=== PATIENT | male | born 1950 | race African-American/Black ===

== ENCOUNTER 2024-07-02 12:59 | Inpatient (IN) | payer MEDICARE ==
[2024-07-02 13:36] LABS: BASO % 0.4 % (0-2.0); EOS % 0.5 % (0-4.5); HEMATOCRIT 34.9 % (35.4-49); LYMPH % 10.2 % (8-40); MCH 24.9 pg (25.7-33.7); MCHC 31.4 g/dl (32.0-35.9); MEAN CELL VOLUME 79.4 fl (80-96); MEAN PLT VOLUME 7.4 fl (7.5-11.1); MONO % 4.6 % (3.8-10.2); NEUT % 84.3 % (42.8-82.8); PLATELET COUNT 332 10^3/uL (134-434); RDW 15.8 % (11.9-15.9); WHITE BLOOD COUNT 12.2 K/mm3 (4.0-10.0)
[2024-07-02 14:07] LABS: CHLORIDE 103 mmol/L (98-107); POTASSIUM 3.2 mmol/L (3.5-5.1); SODIUM 139 mmol/L (136-145)
[2024-07-02 14:09] LABS: ALBUMIN 2.2 g/dl (3.4-5.0); ANION GAP 10 mmol/L (4-13); BLOOD UREA NITROGEN 23.3 mg/dL (7-18); CALCIUM 8.4 mg/dL (8.5-10.1); CO2 26 mmol/L (21-32); GLUCOSE,RANDOM 131 mg/dL (74-106); MAGNESIUM 1.8 mg/dL (1.8-2.4)
[2024-07-02 14:12] LABS: SGOT/AST 11 U/L (15-37)
[2024-07-02 14:13] LABS: CREATININE 1.9 mg/dL (0.55-1.3)
[2024-07-02 14:14] LABS: ALK PHOS 97 U/L (45-117); BILIRUBIN,TOTAL 0.6 mg/dL (0.2-1)
[2024-07-02 14:22] LABS: SGPT/ALT < 6 U/L (13-61)
[2024-07-02] MEDS: LACTATED RINGERS SOLUTION 1000 ML INFUS.BAG IV ONE (14:54)
[2024-07-02 16:07] LABS: EPI CELLS >36 /uL (0-25.1); HYALINE CASTS 9 /uL (0-3.1); PH,URINE 5.5 (5.0-8.0); URINE APPEARANCE CLOUDY; URINE BACTERIA 14 /uL (0-1359); URINE BILIRUBIN 1+ (NEGATIVE); URINE COLOR DK YELLOW; URINE GLUCOSE (UA) NEGATIVE (NEGATIVE); URINE KETONE TRACE (NEGATIVE); URINE LEUK ESTERASE 1+ (NEGATIVE); URINE NITRITE NEGATIVE (NEGATIVE); URINE PROTEIN 1+ (NEGATIVE); URINE WBC 141 /uL (0-25.8)
[2024-07-02] MEDS: ACETAMINOPHEN 1000 MG/100 ML BAG IVPB ONE (16:11)
[2024-07-02] MEDS: SODIUM CHLORIDE 0.9% 1000 ML INFUS.BAG IV ONE ×2 (16:11→16:54)
[2024-07-02] MEDS: CEFTRIAXONE 1,000 MG in DEXTROSE 5%-WATER - 50 ML IVPB ONE (16:11)
[2024-07-02] MEDS ORDERED: ACETAMINOPHEN INJECTION 100 ML ONE (16:12)
[2024-07-02] MEDS ORDERED: CEFTRIAXONE 1 GM/50 ML BAG ONE (16:12)
[2024-07-02 16:24] LABS: URINE RBC 52.9 /uL (0-23.9)
[2024-07-02] MEDS ORDERED: POTASSIUM CHLORIDE ORAL LIQUID 20 MEQ/15 ML ONE (18:40)
[2024-07-02] MEDS: SODIUM CHLORIDE 0.45%/POT 20 MEQ/1,000 ML INFUS.BAG IV SCH (18:50)
[2024-07-02] MEDS: POTASSIUM CHLORIDE ORAL LIQUID 20 MEQ/15 ML PO ONE (18:50)
[2024-07-02] MEDS: HEPARIN NA (PORCINE) 5,000 UNITS/ML 1ML VIAL SQ SCH (21:20)
[2024-07-02] MEDS: ATORVASTATIN CA 40 MG TABLET (FP) PO SCH (21:21)
[2024-07-03] MEDS: LEVOTHYROXINE NA 25 MCG TABLET (FP) PO SCH (06:10)
[2024-07-03 06:55] LABS: BASO % 0.4 % (0-2.0); EOS % 2.2 % (0-4.5); HEMATOCRIT 34.4 % (35.4-49); HEMOGLOBIN 10.8 GM/dL (11.7-16.9); LYMPH % 21.6 % (8-40); MCH 25.1 pg (25.7-33.7); MCHC 31.5 g/dl (32.0-35.9); MEAN CELL VOLUME 79.8 fl (80-96); MEAN PLT VOLUME 7.8 fl (7.5-11.1); MONO % 8.1 % (3.8-10.2); NEUT % 67.7 % (42.8-82.8); PLATELET COUNT 341 10^3/uL (134-434); RBC 4.31 M/mm3 (4.00-5.60); RDW 15.4 % (11.9-15.9); WHITE BLOOD COUNT 10.8 K/mm3 (4.0-10.0)
[2024-07-03 07:22] LABS: POTASSIUM 3.4 mmol/L (3.5-5.1)
[2024-07-03 07:29] LABS: ALBUMIN 2.3 g/dl (3.4-5.0); BLOOD UREA NITROGEN 17.6 mg/dL (7-18); CALCIUM 8.4 mg/dL (8.5-10.1)
[2024-07-03 07:30] LABS: MAGNESIUM 1.7 mg/dL (1.8-2.4)
[2024-07-03 07:33] LABS: CREATININE 1.3 mg/dL (0.55-1.3); PHOSPHOROUS 2.4 mg/dL (2.5-4.9)
[2024-07-03 07:34] LABS: BILIRUBIN,TOTAL 0.6 mg/dL (0.2-1); TOT PROT 7.1 g/dl (6.4-8.2)
[2024-07-03] MEDS: CLOPIDOGREL BISULFATE 75 MG TABLET (FP) PO SCH (09:53)
[2024-07-03] MEDS: MAGNESIUM SULF 50% (8.12 MEQ/2 ML-1 GM VIAL) IVPB ONE (09:53)
[2024-07-03] MEDS: NAPH,MB-DB/K PH,MBDB POWDER PACKET PO ONE (09:53)
[2024-07-03] MEDS: ASPIRIN COATED 81 MG TABLET.EC PO SCH (09:53)
[2024-07-03] MEDS: MAGNESIUM OXIDE 400 MG TABLET (FP) PO ONE (13:58)
[2024-07-03] MEDS: POTASSIUM CHLORIDE ORAL LIQUID 20 MEQ/15 ML PO ONE (13:59)
[2024-07-04] MEDS: CEFTRIAXONE 1 GM in DEXTROSE 5%-WATER - 50 ML IVPB SCH (09:31)
[2024-07-04] MEDS: FLU VACCINE (FLULAVAL) PF 45 MCG/0.5 ML SYRINGE 2024-2025 IM ONE (11:36)
[2024-07-04] MEDS: POTASSIUM CHLORIDE ORAL LIQUID 20 MEQ/15 ML PO ONE (11:41)
[2024-07-04] MEDS: NAPH,MB-DB/K PH,MBDB POWDER PACKET PO SCH (11:41)
[2024-07-04 12:51] VITALS: BMI 30.5
[2024-07-04] MEDS: MAGNESIUM OXIDE 400 MG TABLET (FP) PO SCH (22:13)
[2024-07-05 07:55] LABS: POTASSIUM 4.4 mmol/L (3.5-5.1)
[2024-07-05 08:00] LABS: CALCIUM 8.1 mg/dL (8.5-10.1)
[2024-07-05 08:01] LABS: ALBUMIN 2.1 g/dl (3.4-5.0); BLOOD UREA NITROGEN 11.4 mg/dL (7-18)
[2024-07-05 08:04] LABS: BILIRUBIN,TOTAL 0.6 mg/dL (0.2-1); CREATININE 1.1 mg/dL (0.55-1.3); PHOSPHOROUS 2.1 mg/dL (2.5-4.9); TOT PROT 6.3 g/dl (6.4-8.2)
[2024-07-05 10:09] LABS: MAGNESIUM 1.7 mg/dL (1.8-2.4)
[2024-07-06 11:55] LABS: BASO % 0.3 % (0-2.0); HEMATOCRIT 34.2 % (35.4-49); LYMPH % 17.6 % (8-40); MCH 25.4 pg (25.7-33.7); MCHC 32.3 g/dl (32.0-35.9); MEAN CELL VOLUME 78.8 fl (80-96); MEAN PLT VOLUME 7.8 fl (7.5-11.1); MONO % 8.3 % (3.8-10.2); NEUT % 71.8 % (42.8-82.8); PLATELET COUNT 295 10^3/uL (134-434); RBC 4.34 M/mm3 (4.00-5.60); RDW 16.3 % (11.9-15.9); WHITE BLOOD COUNT 6.9 K/mm3 (4.0-10.0)
[2024-07-06] MEDS: MAGNESIUM 1GM/D5W 100ML - 100 ML IVPB IVPB ONE (15:12)
[2024-07-06 19:14] LABS: IG A QN SERUM. 599 mg/dL (61-437)
[2024-07-07] MEDS: PANTOPRAZOLE 40 MG TABLET PO SCH (09:36)
[2024-07-07] MEDS ORDERED: BISACODYL 5 MG TABLET.DR (FP) PO ONE (16:00)
[2024-07-07] MEDS ORDERED: PEG 3350/NA SULF BICARB CL/KCL 4000 ML SOLN.RECON PO ONE (17:00)
[2024-07-07 18:09] LABS: FREE KAPPA,SERUM 100.6 mg/L (3.3-19.4)
[2024-07-08 08:04] VITALS: BP 121/54; PULSE 57; RESP 19; TEMP 97.9
[2024-07-08 08:44] LABS: INR 1.19 (0.83-1.09); PROTHROMBIN TIME (PATIENT) 13.4 SEC (9.7-13.0)
[2024-07-08 09:01] LABS: BASO % 0.4 % (0-2.0); EOS % 3.3 % (0-4.5); HEMATOCRIT 33.7 % (35.4-49); HEMOGLOBIN 10.7 GM/dL (11.7-16.9); LYMPH % 28.2 % (8-40); MCH 25.5 pg (25.7-33.7); MCHC 31.9 g/dl (32.0-35.9); MEAN CELL VOLUME 80.1 fl (80-96); MONO % 10.1 % (3.8-10.2); PLATELET COUNT 273 10^3/uL (134-434); RDW 16.2 % (11.9-15.9); WHITE BLOOD COUNT 6.6 K/mm3 (4.0-10.0)
[2024-07-08 09:12] LABS: POTASSIUM 4.2 mmol/L (3.5-5.1)
[2024-07-08 09:31] LABS: BLOOD UREA NITROGEN 8.7 mg/dL (7-18); CALCIUM 8.3 mg/dL (8.5-10.1)
[2024-07-08 09:32] LABS: ALBUMIN 2.2 g/dl (3.4-5.0); MAGNESIUM 1.9 mg/dL (1.8-2.4)
[2024-07-08 09:34] LABS: CREATININE 1.1 mg/dL (0.55-1.3)
[2024-07-08 09:36] LABS: BILIRUBIN,TOTAL 0.7 mg/dL (0.2-1); TOT PROT 6.3 g/dl (6.4-8.2)
== END 2024-07-08 12:45 | disposition home or self-care (01) | DRG 683 ==
LOC: JER 12:59 → JERBED 14:52 → OBSVTOIN 14:52 → J4W 20:36
PROVIDERS: ADMIT Internal Medicine; ATTEND Internal Medicine
DX: N17.9 Acute kidney failure, unspecified (principal); I69.354 Hemiplegia and hemiparesis following cerebral infarction affecting left non-dominant side; N39.0 Urinary tract infection, site not specified; I10 Essential (primary) hypertension; R56.9 Unspecified convulsions; I95.89 Other hypotension; D64.9 Anemia, unspecified; E03.9 Hypothyroidism, unspecified; N40.0 Benign prostatic hyperplasia without lower urinary tract symptoms; R63.4 Abnormal weight loss
CPT/HCPCS: 0241U-QW; 36415; 70450-TC; 70551-TC; 71045-TC-FY; 80053; 81003; 82607; 82728; 82747; 82784; 82962; 83036; 83540; 83550; 83605; 83615; 83735; 83883; 84100; 84153; 84155; 84165; 84443; 84484; 85014; 85025; 85045; 85610; 87040; 87086; 90656; 93005; 93010; 97116-GP; 97161-GP; 99285-25; G0008; J0131; J1644; J3480

== ENCOUNTER 2024-12-31 06:28 | Observation (INO) | payer OTHER ==
[2024-12-28 17:31] VITALS: BMI 30.1
[2024-12-31] MEDS ORDERED: BUPIVACAINE HCL/PF 0.25% (2.5MG/ML) 10 ML VIAL ONE (07:05)
[2024-12-31] MEDS ORDERED: PROPOFOL 20 ML ONE (07:46)
[2024-12-31] MEDS ORDERED: MIDAZOLAM HCL 2 MG/2 ML SINGLE DOSE VIAL ONE (07:46)
[2024-12-31] MEDS ORDERED: ROCURONIUM BROMIDE 50 MG/5 ML SYRINGE ONE ×3 (07:47→11:45)
[2024-12-31] MEDS ORDERED: ceFAZolin SODIUM 1 GM VIAL ONE ×2 (09:00→12:58)
[2024-12-31] MEDS: ceFAZolin SODIUM 1 GM VIAL IVPB ONE (09:01)
[2024-12-31] MEDS: BUPIVACAINE HCL/PF 2.5 MG/ML - 30 ML VIAL IJ ONE ×2 (09:15→09:53)
[2024-12-31] MEDS ORDERED: ONDANSETRON 4 MG/2 ML VIAL IVPUSH PRN ×2 (09:21→17:27)
[2024-12-31] MEDS ORDERED: INDOCYANINE GREEN 25 MG/10 ML VIAL IVPUSH ONE (11:10)
[2024-12-31] MEDS ORDERED: TRANEXAMIC ACID 1000 MG/10 ML VIAL ONE (11:38)
[2024-12-31] MEDS ORDERED: SUGAMMADEX SODIUM 200 MG/2 ML VIAL ONE (12:53)
[2024-12-31] MEDS ORDERED: ONDANSETRON 4 MG/2 ML VIAL ONE (12:58)
[2024-12-31] MEDS ORDERED: ACETAMINOPHEN INJECTION 100 ML ONE (15:42)
[2024-12-31] MEDS: ACETAMINOPHEN 1000 MG/100 ML BAG IVPB ONE (15:45)
[2024-12-31] MEDS ORDERED: oxyCODONE HCL 5 MG TABLET PO PRN (17:53)
[2024-12-31] MEDS ORDERED: morphine CARPU-JECT 2 MG/1 ML DISP.SYRIN IVPUSH PRN (17:56)
[2024-12-31] MEDS: ASPIRIN 81 MG CHEWABLE TABLETS PO SCH (21:20)
[2024-12-31] MEDS: TAMSULOSIN HCL 0.4 MG CAP PO SCH (21:20)
[2024-12-31] MEDS ORDERED: LEVODOPA PO SCH (22:00)
[2024-12-31] MEDS ORDERED: CARBIDOPA PO SCH (22:00)
[2024-12-31 23:30] VITALS: RESP 18
[2024-12-31] MEDS: ACETAMINOPHEN 1000 MG/100 ML BAG IVPB SCH (23:36)
[2025-01-01] MEDS: LEVOTHYROXINE NA 25 MCG TABLET (FP) PO SCH (06:08)
[2025-01-01 07:53] LABS: HEMOGLOBIN 12.6 g/dL (13.7-17.5); MCHC 30.7 g/dl (32.3-36.5); MEAN CELL VOLUME 84.9 fl (79.0-92.2); MEAN PLT VOLUME 10.1 fl (9.4-12.4); PLATELET COUNT 237 x10^3/uL (163-337); RDW 16.6 % (12.2-16.6)
[2025-01-01 08:08] LABS: POTASSIUM 4.1 mmol/L (3.5-5.1)
[2025-01-01 08:15] LABS: CALCIUM 8.4 mg/dL (8.5-10.1)
[2025-01-01 08:16] LABS: BLOOD UREA NITROGEN 7.6 mg/dL (7-18); MAGNESIUM 2.1 mg/dL (1.8-2.4)
[2025-01-01 08:18] LABS: CREATININE 0.8 mg/dL (0.55-1.3)
[2025-01-01 08:19] LABS: PHOSPHOROUS 3.4 mg/dL (2.5-4.9)
[2025-01-01 08:51] VITALS: BP 142/96; PULSE 92; TEMP 98.1
[2025-01-01] MEDS: PANTOPRAZOLE 40 MG TABLET PO SCH (09:59)
[2025-01-01] MEDS: ATORVASTATIN CA 20 MG TABLET (FP) PO SCH (09:59)
[2025-01-01] MEDS ORDERED: ASPIRIN 81 MG CHEWABLE TABLETS PO SCH (10:00)
[2025-01-01] MEDS ORDERED: SILODOSIN 8 MG PO SCH (10:00)
[2025-01-01] MEDS: ACETAMINOPHEN 500 MG TABLET (FP) PO SCH (11:28)
== END 2025-01-01 12:50 | disposition home or self-care (01) ==
LOC: JASU-SURG 06:28 → J2C 18:01 → J8W 18:30
PROVIDERS: ADMIT Hospitalist; ATTEND Family Medicine
PROC: 0YU54JZ Supplement Right Inguinal Region with Synthetic Substitute, Percutaneous Endoscopic Approach (ICD-10-PCS; 2024-12-31)
PROC: 8E0W4CZ Robotic Assisted Procedure of Trunk Region, Percutaneous Endoscopic Approach (ICD-10-PCS; 2024-12-31)
PROC: 3E033NZ Introduction of Analgesics, Hypnotics, Sedatives into Peripheral Vein, Percutaneous Approach (ICD-10-PCS; principal; 2024-12-31 08:00)
DX: K40.90 Unilateral inguinal hernia, without obstruction or gangrene, not specified as recurrent (principal); N99.89 Other postprocedural complications and disorders of genitourinary system; N43.3 Hydrocele, unspecified
CPT/HCPCS: 36415; 80048; 83735; 84100; 85027; 86850; 86900; 86901; 88300-TC; 88304-TC; 94010; 94760; 96374; 96376; 97116-GP; 97161-GP; C1781; G0378; J0131

== ENCOUNTER 2025-04-27 11:50 | Observation (INO) | payer OTHER ==
[2025-04-27 14:20] LABS: MCHC 30.5 g/dl (32.3-36.5); MEAN CELL VOLUME 80.3 fl (79.0-92.2); MEAN PLT VOLUME 9.2 fl (9.4-12.4); RDW 26.9 % (12.2-16.6)
[2025-04-27 14:32] LABS: INR 1.12 (0.83-1.09); PROTHROMBIN TIME (PATIENT) 12.3 SEC (9.7-13.0)
[2025-04-27 14:35] LABS: ACTIVATED PTT 27.3 SECONDS (25.2-36.5)
[2025-04-27 15:12] LABS: CO2 24.0 mmol/L (21-32); GLUCOSE,RANDOM 109.0 mg/dL (74-106)
[2025-04-27 15:15] LABS: CREATININE 0.8 mg/dL (0.55-1.3); SGOT/AST 23.0 U/L (15-37); SGPT/ALT 15.0 U/L (13-61)
[2025-04-27 15:17] LABS: TOT PROT 6.1 g/dl (6.4-8.2)
[2025-04-27 15:18] LABS: ALK PHOS 119.0 U/L (45-117)
[2025-04-27] MEDS ORDERED: ACETAMINOPHEN 500 MG TABLET (FP) PO PRN (16:30)
[2025-04-27] MEDS ORDERED: ERGOCALCIFEROL (VIT D2) 50,000 UNIT (1.25 MG) CAPSULE PO SCH (16:30)
[2025-04-27] MEDS: CARBIDOPA/LEVODOPA 25/100 TABLET (FP) PO SCH (20:09)
[2025-04-27] MEDS: TAMSULOSIN HCL 0.4 MG CAP PO SCH (22:10)
[2025-04-27] MEDS: NICOTINE 14 MG/24 HOURS TOPICAL PATCH TD SCH (22:10)
[2025-04-27] MEDS: DOCUSATE SODIUM 100 MG CAPSULE (FP) PO SCH (22:10)
[2025-04-27] MEDS: SULFAMETHOXAZOLE/TRIMETHOPRIM 800MG/160MG D.S. TABLET PO SCH (22:10)
[2025-04-27] MEDS: ATORVASTATIN CA 40 MG TABLET (FP) PO SCH (22:10)
[2025-04-28 02:04] VITALS: BMI 23.8
[2025-04-28] MEDS: LEVOTHYROXINE NA 25 MCG TABLET (FP) PO SCH (06:48)
[2025-04-28 09:19] LABS: MCHC 30.4 g/dl (32.3-36.5); MEAN CELL VOLUME 80.0 fl (79.0-92.2); MEAN PLT VOLUME 9.2 fl (9.4-12.4); RDW 27.0 % (12.2-16.6)
[2025-04-28 09:25] LABS: INR 1.16 (0.83-1.09); PROTHROMBIN TIME (PATIENT) 12.6 SEC (9.7-13.0)
[2025-04-28 10:17] LABS: CO2 25 mmol/L (21-32)
[2025-04-28 10:19] LABS: SGOT/AST 17 U/L (15-37)
[2025-04-28 10:21] LABS: ALK PHOS 109 U/L (45-117); TOT PROT 5.8 g/dl (6.4-8.2)
[2025-04-28 10:23] LABS: CREATININE 0.7 mg/dL (0.55-1.3); GLUCOSE,RANDOM 93 mg/dL (74-106); SGPT/ALT < 6 U/L (13-61)
[2025-04-28] MEDS: PANTOPRAZOLE 40 MG TABLET PO SCH (12:32)
[2025-04-28 19:23] LABS: BF GLUCOSE (CSF ONLY) 42 mg/dL (40-70)
[2025-04-28 19:39] LABS: CSF APPEARANCE CLEAR (CLEAR); CSF WBC 1 mm3 (0-5)
[2025-04-29 09:11] LABS: ABSOLUTE IMMATURE GRANULOCYTES 0.03 x10^3/uL (0.0-0.031); BASOPHILS # 0.04 x10^3/uL (0.01-0.08); EOSINOPHIL % 1.7 % (0.8-7.0); EOSINOPHILS # 0.13 x10^3/uL (0.04-0.54); MCHC 29.9 g/dl (32.3-36.5); MEAN CELL VOLUME 81.3 fl (79.0-92.2); MEAN PLT VOLUME 9.3 fl (9.4-12.4); MONOCYTE # 0.53 x10^3/uL (0.30-0.82); MONOCYTE % 7.0 % (5.3-12.2); RDW 26.9 % (12.2-16.6)
[2025-04-29] MEDS ORDERED: [UNRECOGNIZED DRUG - MIXTURE] IVPB SCH (10:00)
[2025-04-29 10:02] LABS: CO2 25 mmol/L (21-32); GLUCOSE,RANDOM 94 mg/dL (74-106)
[2025-04-29 10:05] LABS: CREATININE 0.8 mg/dL (0.55-1.3); SGOT/AST 16 U/L (15-37)
[2025-04-29 10:06] LABS: TOT PROT 5.6 g/dl (6.4-8.2)
[2025-04-29 10:09] LABS: ALK PHOS 105 U/L (45-117)
[2025-04-29 10:13] LABS: SGPT/ALT < 6 U/L (13-61)
[2025-04-29] MEDS: IMMUN GLOB G(IGG)/PRO/IGA 0-50 400 ML, IMMUN GLOB G(IGG)/PRO/IGA 0-50 200 ML, IMMUN GLOB G IVPB SCH (11:15)
[2025-04-30 09:50] LABS: ABSOLUTE IMMATURE GRANULOCYTES 0.03 x10^3/uL (0.0-0.031); BASOPHILS # 0.03 x10^3/uL (0.01-0.08); EOSINOPHIL % 1.8 % (0.8-7.0); EOSINOPHILS # 0.11 x10^3/uL (0.04-0.54); MCHC 29.9 g/dl (32.3-36.5); MEAN CELL VOLUME 81.1 fl (79.0-92.2); MONOCYTE # 0.50 x10^3/uL (0.30-0.82); MONOCYTE % 8.1 % (5.3-12.2); RDW 27.2 % (12.2-16.6)
[2025-04-30 10:14] LABS: CO2 24.0 mmol/L (21-32); GLUCOSE,RANDOM 90.0 mg/dL (74-106)
[2025-04-30 10:17] LABS: SGOT/AST 17.0 U/L (15-37); SGPT/ALT 7.0 U/L (13-61)
[2025-04-30 10:18] LABS: CREATININE 0.8 mg/dL (0.55-1.3)
[2025-04-30 10:19] LABS: TOT PROT 7.6 g/dl (6.4-8.2)
[2025-04-30 10:20] LABS: ALK PHOS 102.0 U/L (45-117)
[2025-04-30 15:51] VITALS: BP 117/75; PULSE 81
[2025-04-30 16:20] VITALS: RESP 18; TEMP 98
[2025-05-01 11:07] LABS: LYME PCR CSF Negative (Negative)
[2025-05-03 17:06] LABS: IGG CSF. 11.10 mg/dL (0.0-10.3)
== END 2025-04-30 17:39 ==
LOC: JER 11:50 → JERBED 13:12 → J5S 18:42
PROVIDERS: ADMIT Student in an Organized Health Care Education/Training Program; ATTEND Student in an Organized Health Care Education/Training Program
DX: G61.81 Chronic inflammatory demyelinating polyneuritis (principal); D47.2 Monoclonal gammopathy; D64.9 Anemia, unspecified; I10 Essential (primary) hypertension; G20.A1 Parkinson's disease without dyskinesia, without mention of fluctuations; I69.351 Hemiplegia and hemiparesis following cerebral infarction affecting right dominant side; E78.5 Hyperlipidemia, unspecified; E03.9 Hypothyroidism, unspecified; F17.210 Nicotine dependence, cigarettes, uncomplicated; K21.9 Gastro-esophageal reflux disease without esophagitis; Z79.02 Long term (current) use of antithrombotics/antiplatelets
CPT/HCPCS: 36415; 62272; 80053; 82784; 82945; 83735; 83916; 84100; 84157; 85025; 85610; 85730; 86850; 86900; 86901; 87205; 87476; 96365; 96366; 99285-25; G0378; J1459